=== PATIENT | female | born 2000 | race Hispanic/Latino ===

== ENCOUNTER 2024-02-17 07:41 | Emergency (ER) | payer OTHER ==
[~2024-02-17] VITALS: Ht 165.1 cm; Wt 74.8 kg
--- NOTE | 2024-02-17 08:12 | ERN ---
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 This occurred at midnight last night. She washed it well with soap and water and applied triple antibiotics and continued working. She was referred here by her employer for re-evaluation. She has no current symptoms. It is not red or tender. She is not certain when her last tetanus was. She does not have diabetes. She does not smoke drink use recreational drugs. Allergies: Coded Allergies: No Known Drug Allergies (Unverified Allergy, Unknown, 02/17/24) Past Medical History Past Medical History: Asthma Surgical History: Other Surgical History Other: DX. LAP RN Note Reviewed/Agreed w/PFSH: Yes Review of System Dictation All pertinent systems reviewed, negative except as documented in the HPI The ROS is obtained from patient GENERAL/CONSTITUTIONAL: Negative except as documented in HPI. MUSCULOSKELETAL: Negative except as documented in HPI. SKIN: Negative except as documented in HPI. NEUROLOGIC: Negative except as documented in HPI. Initial Vital Sign VS Vital Signs Date Time Temp Pulse Resp B/P (MAP) Pulse Ox O2 Delivery O2 Flow Rate FiO2 02/17/24 07:46 99.1 77 18 114/75 100 Room Air 0 Physical Exam Dictation VITAL SIGNS: note is made of triage vital signs CONSTITUTIONAL: This is a comfortable patient who is awake, alert, and appropriately interactive. HEAD: Normocephalic, Atraumatic. SKIN: Warm, dry, with normal turgor. Capillary refill less than 3 seconds. Normal color.No rash. No cellulitis or abscess. Two small linear wounds are present on the ulnar aspect of the right thumb without redness, swelling, tenderness or drainage. No localized bruising MS/Extremity: There is no calf tenderness. Baseline range of motion is noted in all 4 extremities. There are no deformities. NEURO: Awake and alert, lucid. Facies symmetric and speech is clear. Motor strength 5/5 in all extremities. Sensory grossly intact. PSYCH: Patient is appropriately attentive and cooperative without evidence of hallucination. ED Course ED Course Vital Signs Date Time Temp Pulse Resp B/P (MAP) Pulse Ox O2 Delivery O2 Flow Rate FiO2 02/17/24 07:46 99.1 77 18 114/75 100 Room Air 0 Medical Decision Making MDM INITIAL IMPRESSION Initial history and physical concerning for rat bite, no evidence of local infection Contributing medical problems: None I have reviewed the triage nursing notes and vital signs. The patient is afebrile with acceptable oxygen saturation, heart rate and blood pressure. Initial plan: Tetanus update, precautions regarding delayed onset of fever or other symptoms of illness either locally or systemically. Risks of leptospirosis, local infection with staph or strep or rat bite fever were reviewed. She was provided precautions to look for. She is recommended to continue local care. DISPOSITION Final diagnostic impression: Rat bite on the non dominant hand without evidence of local infection, no systemic symptoms I discussed my findings, clinical impression and treatment recommendations with the patient. I have reviewed the social factors contributing to the patient's presentation and disposition planning. My final plan for disposition was made based upon clinical findings, response to treatment and discussion with the patient regarding management options. Hospitalization is not indicated due to low risk of short term progression, complication, morbidity or mortality related to the current diagnosis At the time of discharge, the vital signs are within acceptable limits. The discharge treatment plan includes general recommendations and symptomatic care. Tylenol can be used if needed for pain Incidental findings discussed: none Questions were invited and answered in layman's terms. I have emphasized my follow-up recommendations and reviewed ED return precautions. I have answered any questions in layman's terms. The patient understands that they will have to arrange for out-patient follow-up for recheck of today's condition. The patient is stable and appropriate for discharge from the ED. This dictation was prepared using [employer] voice recognition software. Occasional voice recognition errors may occur. When identified, these errors have been corrected. While every attempt is made to correct errors during dictation, errors may still exist. DX & DISP Disposition: Discharge Decision to Admit Date: Feb 17, 2024 Decision to Admit Time: 08:11 Departure Impression: Primary Impression: Right but of the right thumb without evidence of local infection Condition: Stable Additional Instructions: Tylenol as needed for pain. Keep the wound clean and apply Neosporin three to 4 times a day. Keep your wound covered while at work. Follow up immediately with the family physician of your choice for the development of fever or local signs of infection. We updated your tetanus today which is good for 10 years. Referrals: CYDNEY CORREA MD (PCP) Time of Disposition: 08:12 LESLEY SIMON MD Feb 17, 2024 08:12
[2024-02-17 08:30] VITALS: BP 126/84; PULSE 78; RESP 18; TEMP 98.2; O2SAT 98
[2024-02-17] MEDS: teTANUS/diphthERIA TOXOID [ADULT] 0.5 ML VIAL IM ONE (08:36)
== END 2024-02-17 08:36 | disposition home or self-care (01) ==
LOC: EDH 07:41
DX: S61.051A Open bite of right thumb without damage to nail, initial encounter (principal); J45.909 Unspecified asthma, uncomplicated; W53.11XA Bitten by rat, initial encounter; Y93.89 Activity, other specified; Y92.89 Other specified places as the place of occurrence of the external cause; Y99.8 Other external cause status
CPT/HCPCS: 90471; 90714; 99283